=== PATIENT | male | born 1980 | race Caucasian/White ===

== ENCOUNTER 2018-11-01 23:03 | Emergency (ER) | payer BC ==
[~2018-11-01] VITALS: Ht 188 cm; Wt 70.3 kg
[2018-11-01 23:10] VITALS: BP 131/82
--- NOTE | 2018-11-01 23:15 | NUR ---
ED Nurse Note: Patient walked into ED c/o abscess located on the patients left hand, states that he was bitten by a bug about 2 days ago. at time of arrial patients left middle and index finger are reddened and have slighty raised skin however is able to freely move hand and fingers. patient is alert and oriented x4, ambulatory with a steady gait, VSS
[2018-11-01] MEDS ORDERED: DOXYCYCLINE MO100 MG ORAL (23:27)
[2018-11-01] MEDS ORDERED: MUPIROCIN22 GM TOPIC (23:27)
--- NOTE | 2018-11-01 23:28 | Emergency Room Report ---
History of Present Illness General Chief Complaint: Animal Bite Source: Patient Present Illness HPI Is a 38-year-old male with no past medical history. He presents with chief complaint of itching and swelling and redness to his left middle finger. Onset was about an hour ago. He was on the computer nausea and was painful and redness and itchiness to his PIP joint of the third finger. No injury. Did not see anything biting him. Better now after icing it down. Denies any other complaint. Allergies: Coded Allergies: No Known Allergies (Unverified , 11/01/18) Patient History Past Medical History: none, see triage record, old chart reviewed Past Surgical History: none Pertinent Family History: none Social History: Denies: smoking Immunizations: other Reviewed Nursing Documentation: PMH: Agreed; PSxH: Agreed Nursing Documentation-PM Past Medical History: No History, Except For Review of Systems Eye: Denies: eye pain, blurred vision ENT: Denies: ear pain, nose congestion, throat swelling Respiratory: Denies: cough, shortness of breath Cardiovascular: Denies: chest pain, palpitations Gastrointestinal: Denies: abdominal pain, diarrhea, nausea, vomiting Musculoskeletal: Reports: joint pain, joint swelling; Denies: back pain Skin: Denies: rash Neurological: Denies: headache, numbness Endocrine: Denies: increased thirst, increased urine Hematologic/Lymphatic: Denies: easy bruising All Other Systems: negative except mentioned in HPI Physical Exam Vital Signs Date Time Temp Pulse Resp B/P (MAP) Pulse Ox O2 Delivery O2 Flow Rate FiO2 11/01/18 23:05 98.6 76 18 131/82 (98) 94 Room Air Vitals normal Sp02 EP Interpretation: reviewed, normal General Appearance: well appearing, no apparent distress, alert Head: normocephalic, atraumatic Eyes: bilateral eye PERRL, bilateral eye EOMI ENT: hearing grossly normal, normal pharynx Neck: full range of motion, supple, no meningismus Respiratory: chest non-tender, lungs clear, normal breath sounds Cardiovascular #1: regular rate, rhythm, no murmur Gastrointestinal: normal bowel sounds, non tender, no mass, no organomegaly, no bruit, non-distended Musculoskeletal: back normal, gait/station normal, normal range of motion, other - Left third finger: There is edema and redness to the PIP joint. Full range of motion of the joint. No foreign body. Psychiatric: mood/affect normal Medical Decision Making Diagnostic Impression: Primary Impression: Cellulitis of finger of left hand ER Course Patient presents with redness to the finger. Most likely a cellulitis. Could be from an insect bite or sting. We will put her on antibiotics but no evidence of any septic joint or abscess. Last Vital Signs Date Time Temp Pulse Resp B/P (MAP) Pulse Ox O2 Delivery O2 Flow Rate FiO2 11/01/18 23:05 98.6 76 18 131/82 (98) 94 Room Air Status: unchanged Disposition: HOME, SELF-CARE Condition: Stable Scripts Mupirocin* (MUPIROCIN*) 22 Gm Oint...g. 1 APPLIC TOPIC THREE TIMES A DAY, #22 GM Prov: Bernardo Dupont MD 11/01/18 Doxycycline Monohydrate* (DOXYCYCLINE MONOHYDRATE*) 100 Mg Capsule 100 MG ORAL Q12H, #14 CAP 0 Refills Prov: Bernardo Dupont MD 11/01/18 Additional Instructions: Follow-up with your doctor in 7 days for recheck. Keep wound clean. Clean first with hydrogen peroxide and then apply antibiotic ointment. May take Benadryl as needed for itching. Return if worse. Bernardo Dupont MD Nov 01, 2018 23:28
[2018-11-01 23:40] VITALS: BP 124/80
--- NOTE | 2018-11-01 23:40 | NUR ---
ER DISCHARGE NOTE: Patient is cleared to be discharged per ERMD, pt is aox4, on room air, with stable vital signs. pt was given dc and prescription instructions, pt was able to verbalize understanding, pt id band removed without complications. pt is able to ambulate with steady gait. pt took all belongings.
== END 2018-11-01 23:40 | disposition home or self-care (01) ==
LOC: EMR 23:40
DX: L03.114 Cellulitis of left upper limb (principal)
CPT/HCPCS: 99282